=== PATIENT | male | born 1980 | race Caucasian/White ===

== ENCOUNTER 2017-04-30 09:56 | Day surgery (SDC) | payer BC, OTHER ==
[2017-04-30] MEDS ORDERED: LR 1,000 ML IV ONE (10:59)
--- NOTE | 2017-04-30 11:23 | PDANEPAE ---
ANE History of Present Illness 37 yo M w Gloria here for EGD ANE Past Medical History - Cardiovascular History Hx Hypertension: No Hx Arrhythmias: No Hx Chest Pain: No Hx Coronary Artery / Peripheral Vascular Disease: No Hx CHF / Valvular Disease: No Hx Palpitations: No - Pulmonary History Hx COPD: No Hx Asthma/Reactive Airway Disease: No Hx Recent Upper Respiratory Infection: No Hx Oxygen in Use at Home: No Hx Sleep Apnea: No Sleep Apnea Screening Result - Last Documented: Negative - Neurologic History Hx Cerebrovascular Accident: No Hx Seizures: Yes Hx Dementia: No Neurologic History Comment: DURING INFANCY - Endocrine History Hx Diabetes: No - Renal History Hx Renal Disorders: No - Liver History Hx Hepatic Disorders: No - Neurological & Psychiatric Hx Hx Neurological and Psychiatric Disorders: Yes Neurological / Psychiatric History Comment: ANXIETY - Cancer History Hx Cancer: No - Congenital Disorder History Hx Congenital Disorders: No - GI History Hx Gastrointestinal Disorders: Yes Gastrointestinal History Comment: BARRETTS. ESOPHAGEAL ULCER - Other Health History Other Health History: INSOMNIA - Chronic Pain History Chronic Pain: No - Surgical History Prior Surgeries: EGD ANE Review of Systems Review of Systems: - Exercise capacity METS (RN): 4 METS ANE Patient History - Allergies Allergies/Adverse Reactions: No Known Allergies Allergy (Unverified 03/08/15 16:30) - Home Medications Home Medications: CLONAZEPAM PRN 04/27/17 [Last Taken 04/29/17] MIRTAZAPINE HS 04/27/17 [Last Taken 04/29/17] Omeprazole BID 04/27/17 [Last Taken 04/30/17 06:30] - NPO status NPO Status: no food or drink >8 hours NPO Since - Liquids (Date): 04/29/17 NPO Since - Liquids (Time): 20:00 NPO Since - Solids (Date): 04/30/17 NPO Since - Solids (Time): 06:00 - Anes Hx Anes Hx: no prior problems - Smoking Hx Smoking Status: Former smoker - Alcohol Use Alcohol Use: None - Family Anes Hx Family Anes Hx: none Family Hx Anesthesia Complications: NEG ANE Labs/Vital Signs - Vital Signs Blood Pressure: 116/77 Heart Rate: 70 Respiratory Rate: 16 O2 Sat (%): 95 Height: 187.96 cm Weight: 90.718 kg ANE Physical Exam - Airway Neck exam: FROM Mallampati Score: Class 2 Mouth exam: normal dental/mouth exam - Pulmonary Pulmonary: no respiratory distress, clear to auscultation - Cardiovascular Cardiovascular: regular rate and rhythym, no murmur, rub, or gallop - ASA Status ASA Status: II ANE Anesthesia Plan Anesthesia Plan: GA with mask Total IV Anesthesia: Yes
[2017-04-30] MEDS ORDERED: PROPOFOL/EMULSION 500 MG/50 ML BOTTLE IV ONE ×2 (11:25→11:52)
[2017-04-30] MEDS ORDERED: ONDANSETRON 4 MG/2 ML VIAL IVP PRN (11:27)
[2017-04-30] MEDS ORDERED: NALOXONE HCL 0.4 MG/ML INJ IVP PRN (11:27)
[2017-04-30] MEDS ORDERED: ACETAMINOPHEN 500 MG TAB PO PRN (11:27)
--- NOTE | 2017-04-30 12:08 | GIREPORT ---
[facility] - Endoscopy Department Patient Name: Claudy Kinney Procedure Date: 04/30/2017 11:23 AM Patient Type: Outpatient Attending / ER Physician: Dominick Balderas MD Procedure: Upper GI endoscopy Indications: Villa's esophagus, Follow-up of esophageal ulcer Providers: Dominick Balderas MD Medicines: Propofol per Anesthesia Complications: No immediate complications. Description of Procedure: After obtaining informed consent, the endoscope was passed under direct vision. Throughout the procedure, the patient's blood pressure, pulse, and oxygen saturations were monitored continuous ly. The Endoscope was introduced through the mouth, and advanced to the second part of duodenum. The upper GI endoscopy was accomplished without difficulty. The patient tolerated the procedure well . Findings: The esophagus and gastroesophageal junction were examined with white light and narrow band imagi ng (NBI). 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 T hese changes involved the mucosa at the upper extent of the gastric folds (41 cm from the incisors) extending to the Z-line (23 cm from the incisors). Circumferential salmon-colored mucosa was pre sent from 23 to 41 cm and nodularity was present at 33 cm. Mucosa was biopsied with a cold forceps fo r histology in a targeted manner and in 4 quadrants at intervals of 2 cm. A total of 11 specimen bottles were sent to pathology. A medium-sized hiatal hernia was present. Normal mucosa was found in the entire examined stomach. The examined duodenum was normal. Estimated Blood Loss: Estimated blood loss: none. 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 Biopsied 4 quadrants at 2cm intervals and specifically biopsied nodule at 33cm although this jonathan eared smooth and likely is benign. - Medium-sized hiatal hernia. - Normal mucosa was found in the entire stomach. - Normal examined duodenum. Recommendation: - Patient has a contact number available for emergencies. The signs and symptoms of potential de layed complications were discussed with the patient. Return to normal activities tomorrow. Written discharge instructions were provided to the patient. - Resume previous diet. - Use Prilosec (omeprazole) 40 mg PO daily. - Await pathology results. - Repeat upper endoscopy in 1 year for surveillance given this was his first full surveillance o f Villa's (recent dx in setting of severe esophagitis). - Thank you for allowing me to participate in the care of this patient. Attending Participation: I personally performed the entire procedure. I personally performed the entire procedure without the assistance of a fellow, resident or surgical coordinator. Dominick Balderas MD Dominick Balderas MD 04/30/2017 12:07:39 PM Number of Addenda: 0 Note Initiated On: 04/30/2017 11:23 AM [email or web address]
[2017-04-30 12:11] VITALS: PULSE 74
[2017-04-30 12:32] VITALS: O2SAT 96
[2017-04-30 13:17] VITALS: BP 95/57; RESP 16; TEMP 98.6
--- NOTE | 2017-04-30 13:35 | POSTANESTH ---
Post Anesthetic Evaluation Cardiovascular Status: Normal, Stable, Similar to Pre-Op Cond Respiratory Status: Normal, Stable, Similar to Pre-op Cond. Level of Consciousness/Mental Status: Can Participate in Eval, Alert and Oriented Pain Control: Adequate, Prn Tx Ordered Nausea/Vomiting Control: Adequate, Prn Tx Ordered Complications Possibly Related to Anesthesia: None Noted
== END 2017-04-30 13:16 | disposition home or self-care (01) ==
LOC: FSGY 09:56
PROVIDERS: ATTEND Internal Medicine
PROC: 0DB58ZX Excision of Esophagus, Via Natural or Artificial Opening Endoscopic, Diagnostic (ICD-10-PCS; principal; 2017-04-30 11:00)
DX: K22.70 Barrett's esophagus without dysplasia (principal); K20.9 Esophagitis, unspecified; K44.9 Diaphragmatic hernia without obstruction or gangrene; F41.1 Generalized anxiety disorder; F10.10 Alcohol abuse, uncomplicated
CPT/HCPCS: J2704